=== PATIENT | female | born 1985 | race Caucasian/White ===

== ENCOUNTER 2017-01-09 13:02 | Emergency (ER) | payer BC ==
[~2017-01-09] VITALS: Ht 170.2 cm; Wt 84.4 kg
[2017-01-09 13:37] VITALS: BP 120/74
--- NOTE | 2017-01-09 13:55 | PHYS DOC ---
Past Medical History Past Medical History: No Pertinent History Past Surgical History: Alcohol Use: Occasionally Drug Use: None Adult General Chief Complaint Chief Complaint: FACE PROBLEM [facility] HPI Patient is a 31 year old female presents to the emergency department stating she's been having left-sided facial swelling since . She states that she had taken some Mucinex which seemed to have helped with the swelling and discomfort although it is become worse. She states she did try to take Benadryl with no relief. She states that she's been having sinus pressure and pain along the maxillary sinus area. She states that she has having some discomfort behind her eyes. Patient denies any blurred vision or difficulty seeing. She denies any fever, chills or any nausea or vomiting. Patient also states that she is been out side in his found 2 ticks on her with an unknown length of time the textile been on her period she does not have any bull's-eye weinstein noted although she does have redness noted around the areas in which the tick was located. Patient denies any fever, chills or any generalized body aches and discomfort. Review of Systems Review of Systems Constitutional: Denies fever or chills [] Eyes: Denies change in visual acuity, redness, or eye pain [] HENT: Denies nasal congestion or sore throat. C/o left sided facial swelling Respiratory: Denies cough or shortness of breath [] Cardiovascular: No additional information not addressed in HPI [] GI: Denies abdominal pain, nausea, vomiting, bloody stools or diarrhea [] : Denies dysuria or hematuria [] Musculoskeletal: Denies back pain or joint pain [] Integument: Denies rash or skin lesions [] Neurologic: Denies headache, focal weakness or sensory changes [] Endocrine: Denies polyuria or polydipsia [] Allergies Allergies Allergies Coded Allergies Type Severity Reaction Last Updated Verified Penicillins Allergy Severe Hives 01/27/16 Yes Physical Exam Physical Exam Constitutional: Well developed, well nourished, no acute distress, non-toxic appearance. [] HENT: Normocephalic, atraumatic, bilateral external ears normal, oropharynx moist, no oral exudates, nose normal. Bilateral tympanic membranes appear to be normal. Throat with no erythematous no exudate no drainage or discharge noted. Patient was noted to have a fractured tooth on the left upper area #11. No swelling no abscess noted. Patient with swelling and tenderness noted along the left maxillary sinus area. Patient was also noted to have swelling along the frontal left area. Eyes: PERRLA, EOMI, conjunctiva normal, no discharge. [] Neck: Normal range of motion, no tenderness, supple, no stridor. [] Cardiovascular:Heart rate regular rhythm, no murmur [] Lungs & Thorax: Bilateral breath sounds clear to auscultation [] Skin: Warm, dry, no erythema, no rash. Patient with two jayy areas from where she has removed tics. No drainage, no discharge and bulls eye noted. Back: No tenderness Extremities: No tenderness, no cyanosis, no clubbing, ROM intact, no edema. [] Neurologic: Alert and oriented X 3, normal motor function, normal sensory function, no focal deficits noted. [] Psychologic: Affect normal, judgement normal, mood normal. [] Current Patient Data Vital Signs Vital Signs Date Time Temp Pulse Resp B/P (MAP) Pulse Ox O2 Delivery O2 Flow Rate FiO2 01/09/17 13:37 98.5 89 20 96 Room Air 98.5 EKG EKG [] Radiology/Procedures Radiology/Procedures [] Course & Med Decision Making Course & Med Decision Making Pertinent Labs and Imaging studies reviewed. (See chart for details) Patient will be placed on doxycycline for sinusitis infection. This will also cover Lyme's disease therefore no blood work will be obtained. Patient was recommended to use Mucinex DM [id number] to help with sinus drainage pain and discomfort. Also recommended Sudafed. Patient was also recommended Tylenol or ibuprofen for fever chills or generalized body aches and discomfort. She was encouraged to drink plenty of fluids. Patient was instructed to also refrain from sexual intercourse or use protection as doxycycline has the potential for causing defects. Patient was also encouraged to use cool packs on her left facial area. Patient will be discharged home in stable condition signs and symptoms to return back to emergency department as been provided. [] Dragon Disclaimer Dragon Disclaimer This electronic medical record was generated, in whole or in part, using a voice recognition dictation system. Departure Departure Impression: Primary Impression: Sinusitis, acute Additional Impression: Tick bite of abdomen Disposition: HOME, SELF-CARE Condition: STABLE Referrals: NO PCP (PCP) Patient Instructions: Sinusitis, [id number], Wood Tick Bite, [id number] Additional Instructions: You are being treated for sinusitis. Medication as prescribed Mucinex DM as prescribed by manufacture Sudafed as directed by manufacture Tylenol or Ibuprofen for pain and discomfort Drink plenty of fluids Ice packs to the left sided of the face Followup with your primary care provider in 3-5 days Return to emergency department as needed for signs and symptoms that become worse. Scripts Doxycycline Hyclate (DOXYCYCLINE HYCLATE) 100 Mg Capsule 1 CAP PO BID, #[id number] CAP Prov: ODILON HUFFMAN APRN 01/09/17 Problem Qualifiers ODILON HUFFMAN APRN January 09, 2017 13:55
[2017-01-09] MEDS ORDERED: DIPHTH,PERTUSS(ACELL),TET TOX 0.5 ML DISP.SYRIN. VAX IM ONE (14:00)
[2017-01-09] MEDS ORDERED: DOXY100C2 PO (14:01)
== END 2017-01-09 14:11 | disposition home or self-care (01) ==
LOC: ER 13:02
DX: J01.90 Acute sinusitis, unspecified (principal); S30.861A Insect bite (nonvenomous) of abdominal wall, initial encounter; Z88.0 Allergy status to penicillin; W57.XXXA Bitten or stung by nonvenomous insect and other nonvenomous arthropods, initial encounter; Y93.89 Activity, other specified; Y92.89 Other specified places as the place of occurrence of the external cause; Y99.8 Other external cause status
CPT/HCPCS: 99283